=== PATIENT | female | born 1950 | race Caucasian/White ===

== ENCOUNTER → 2023-08-22 11:41 | Outpatient (REF) | payer OTHER, SELFPAY | LOC: HWWDC 11:41 | PROVIDERS: ATTENDING PHYSICIAN Family Medicine | DX: N18.31 Chronic kidney disease, stage 3a (principal); R80.9 Proteinuria, unspecified; Z12.31 Encounter for screening mammogram for malignant neoplasm of breast | CPT/HCPCS: 76775; 77063; 77067 ==

== ENCOUNTER → 2023-12-26 13:26 | Outpatient (REF) | payer OTHER, SELFPAY | LOC: HWRAD 13:26 | PROVIDERS: ATTENDING PHYSICIAN Internal Medicine Rheumatology; FAMILY PHYSICIAN Family Medicine | DX: M80.00XS Age-related osteoporosis with current pathological fracture, unspecified site, sequela (principal) | CPT/HCPCS: 77080 ==

== ENCOUNTER → 2024-04-16 12:51 | Outpatient (REF) | payer OTHER, SELFPAY | LOC: HWRCS 12:51 | PROVIDERS: ATTENDING PHYSICIAN Family Medicine | DX: R06.00 Dyspnea, unspecified (principal) | CPT/HCPCS: 93306 ==

== ENCOUNTER 2024-06-10 17:57 | Inpatient (IN) | payer OTHER, SELFPAY ==
[2024-06-10 11:37] VITALS: BP 144/86
--- NOTE | 2024-06-10 13:24 | ED.GENMED ---
History of Present Illness
General
Chief Complaint: Skin Problem
Source: patient
Exam Limitations: none
Time Seen by Provider: 06/10/24 13:10
Nursing documentation reviewed up to this point in time: agreed with
History of Present Illness
History of Present Illness:
Patient is a 74-year-old female who has a history of gout, diabetes hypertension. She was initially diagnosed with gout by her rail car repair carman Dr. Carmen Landon in April and started on allopurinol and colchicine. It was drained at that time and
showed some crystals. Patient reports on Monday she noticed a pea-sized area of pus and went to urgent care and they drained it and did put her on Keflex. She has taken 4 doses of Keflex however patient reports she has increasing redness
swelling and discomfort. She denies any fevers.
Past History
Past History
ED Past Medical History: HTN, Hypercholesterolemia and NIDDM
ED Past Surgical History: Gynecological (D&C, hysterectomy, tubal ligation), Orthopedic (Right total hip, right total knee, left ankle/tibia), Urological (Sphincter sling) and Other (Dental surgery)
Social History
Alcohol: None
Drug: None
Review of Systems
Review of Systems
Allergies reviewed?: Yes
All Other Systems: ROS reviewed and negative except as documented in HPI and ROS
Constitutional: Reports no symptoms; Denies fever, fatigue or chills
Musculoskeletal: Reports other (Left fifth finger pain swelling and redness)
Skin: Reports no symptoms
Neurological: Reports no symptoms
Psychiatric: Reports no symptoms
Phy Exam
General Physical Exam
General Presentation: no apparent distress
General age: appears stated age
General Skin: warm and dry
General Habitus: normal
General Hydration: appears well hydrated
Neurological Exam
Neurological Exam: alert and oriented x3
Musculoskeletal Exam
Musculoskeletal Exam: other (left 5 th finger with redness, swelling tenderness with redness extending to proximal dorsal hand/wrist area; finger is very painful to touch)
Skin Exam
Skin Exam: normal color and warm/dry
Psychiatric Exam
Psychiatric Exam: normal mood/affect
Course
Orders/Labs/Results
Orders:
Orders
06/10/24 13:28
Finger(s)/Thumb 2 View Lt [CR Finger(s)/thumb Min 2 Vw Lt] Urgent
Comment:
Reason For Exam: pain/swelling/redness to left 5th finger hx gout
06/10/24 13:29
IV Insert/Care/Rem.- Treatment PRN
06/10/24 14:08
Complete Blood Count/With Diff Urgent
Comprehensive Metabolic Panel Urgent
Wound Culture [Wound/Abscess/Other Culture] Urgent
MIKAYLA Source: Finger
Specimen Description: Left
Date Specimen was Collected: 06/10/24
Time Specimen was Collected: 14:00
Comment: 5th finger
Abnormal Lab Results
06/10/24
14:08
RBC 3.49 L 10^6/uL
(4.20-5.40)
Hgb 10.7 L g/dL
(12.0-16.0)
Hct 31.9 L %
(37.0-47.0)
MPV 11.3 H fL
(7.4-10.4)
Potassium 5.4 H mmol/L
(3.5-5.1)
BUN 23 H mg/dl
(7-17)
Creatinine 1.3 H mg/dL
(0.6-1.0)
06/10/24 14:08
06/10/24 14:08
Vital Signs
Initial and Last Documented VS:
Initial Vital Signs
Temp Pulse Resp BP Pulse Ox
97.5 F 94 16 144/86 95
06/10/24 11:37 06/10/24 11:37 06/10/24 11:37 06/10/24 11:37 06/10/24 11:37
Last Documented Vital Signs
Temp Pulse Resp BP Pulse Ox
98.1 F 78 16 141/80 92
06/10/24 15:40 06/10/24 15:40 06/10/24 11:37 06/10/24 15:40 06/10/24 15:40
MDM/Problems Addressed
Differential Diagnosis Includes:
No limited gout, cellulitis
MDM/Problems Addressed:
Symptoms are consistent with cellulitis. Patient with known gout had a drain several days ago in urgent care however over the past several days had increasing redness swelling and pain. Patient denies any fevers and is afebrile here however on
exam there is obvious swelling and erythema to left finger which extends to hand/wrist. Her kidney function is mildly elevated with a creatinine 1.3. Her last creatinine was 1.1 in 2022. xray consistent w/ gout. pt is on colchicine allopurinol.
Will give IV Ancef here and plan for admission.
Chronic conditions affecting care:
gout
*Critical Care Note
Total Time (30-74mins, 75-104mins- exclusive of procedures): Not Applicable
ED Attending Note
-
Portions of this chart may have been created with voice recognition software.� Occasional wrong word or��sound alike� substitutions may have occurred due to the inherent limitations of voice recognition software.
Discharge Plan
Departure
Patient Disposition: Admit
Date of Disposition: 06/10/24
Time of Disposition: 15:58
Admit to: Med/Surg
Admit to doctor: hospitalist
Presentation/result/management discussed w/ accepting MD/DO: Hospitalist
Patient with high blood pressure during this ER visit?: Yes
Condition: Fair
Covid-19: Not Applicable
Discharge Problem:
cellulitis of left 5th finger
Prescriptions:
No Action
ketoconazole 1 APPLIC cream
1 applic topical BIDPRN PRN (Reason: yeast infection)
paroxetine HCl 10 MG tablet
10 mg PO BID Qty: 0 0RF
Rx Instructions:
One tab by mouth twice daily.
lovastatin 40 MG tablet
40 mg PO HS Qty: 0 0RF
Rx Instructions:
One tab by mouth at bedtime daily.
levothyroxine 125 MCG tablet
125 mcg PO DAILY Qty: 0 0RF
Rx Instructions:
One tab by mouth once daily on an empty stomach.
hydroxychloroquine 200 MG tablet
400 mg PO DAILY Qty: 0 0RF
Rx Instructions:
Two tabs (400 mg) by mouth once daily.
metformin 500 MG tablet extended release 24 hr
2,000 mg PO HS Qty: 0 0RF
Rx Instructions:
2000 mg by mouth at bedtime daily.
cholecalciferol (vitamin D3) 1,000 UNITS tablet
1,000 units PO DAILY Qty: 0 0RF
Rx Instructions:
One tab by mouth once daily.
multivitamin with folic acid [Tab-A-Sarah] 1 TABLET tablet
1 tab PO DAILY Qty: 0 0RF
Rx Instructions:
One tab by mouth once daily.
ropinirole 4 MG tablet
4 mg PO DAILY@1400
omeprazole 20 MG tablet,disintegrat, delay rel
20 mg PO DAILY
Fosamax:
70 mg PO TARIQ
Patient Comments:
does not know dosage
mupirocin 1 APPLIC ointment
1 applic intranasal BID Qty: 1 0RF
Patient Comments:
last dose, 03/03/21
aspirin 325 MG tablet
325 mg PO DAILY 0RF
sennosides [senna] 1 TABLET tablet
2 tab PO BID 0RF
acetaminophen 325 MG tablet
650 mg PO Q6H 0RF
magnesium hydroxide 30 ML suspension
30 ml PO DAILYPRN PRN (Reason: constipation) 0RF
docusate sodium 100 MG capsule
100 mg PO BID 0RF
lisinopril 10 MG tablet
10 mg PO DAILY Qty: 0 0RF
Rx Instructions:
hold systolic blood pressure <130 while on Oxy
gabapentin 300 MG capsule
300 mg PO HS Qty: 0 0RF
Rx Instructions:
limit dose to one tab nightly due to effect on kidneys
diclofenac sodium 75 MG tablet,delayed release (DR/EC)
75 mg PO DAILY Qty: 0 0RF
Rx Instructions:
take with food
drink plenty of water daily if taking this med
hydrochlorothiazide 25 MG tablet
25 mg PO DAILY Qty: 0 0RF
Rx Instructions:
hold systolic blood pressure <130 while on Oxy
oxycodone 5 MG tablet
5 mg PO Q6HPRN PRN (Reason: moderate-severe pain) Qty: 30 0RF
Rx Instructions:
1 tab moderate pain or 2 if pain severe
Dx total joint replacement
ongoing therapy
cephalexin 500 mg capsule
500 mg PO BID 10 Days Qty: 20 0RF
Referrals:
Evelina Mccray MD [Family Provider] -
Interventions
Interventions:
ED-Skin Assessment Last Done: 06/10/24 13:45
Discharge Date and Time
Print Language: IRISH
[2024-06-10 14:23] LABS: % Basophils 0.4 % (0-2); % Eosinophils 2.5 % (0-6); % Immature Granulocytes 0.4 % (0-0.5); % Lymphocytes 22.2 % (20.5-51.1); % Monocytes 9.2 % (1.7-9.3); % Neutrophils 65.3 % (42.2-75.2); Absolute Eosinophils 0.2 10^3/uL (0-0.7); Absolute Lymphocytes 1.5 10^3/uL (1.2-3.4); Absolute Monocytes 0.6 10^3/uL (0.1-0.6); Absolute Neutrophils 4.4 10^3/uL (1.4-6.5); Hematocrit 31.9 % (37.0-47.0); Hemoglobin 10.7 g/dL (12.0-16.0); Mean Corp Hgb Conc. 33.5 g/dL (33.0-37.0); Mean Corpuscular Hgb 30.7 pg (27.0-31.0); Mean Corpuscular Volume 91.4 fL (81.0-99.0); Mean Platelet Volume 11.3 fL (7.4-10.4); Nucleated Red Blood Cells % 0 %; Platelet Count 163 10^3/uL (130-400); Red Blood Cell Count 3.49 10^6/uL (4.20-5.40); Red Cell Dist. Width 13.8 % (11.5-14.5); White Blood Cell Count 6.8 10^3/uL (4.8-10.8)
[2024-06-10 14:35] LABS: ALT (SGPT) 27 U/L (0-35); AST (SGOT) 29 U/L (14-36); Albumin 4.8 g/dl (3.5-5.0); Alkaline Phosphatase 66 U/L (38-126); Blood Urea Nitrogen 23 mg/dl (7-17); Calcium 9.8 mg/dl (8.4-10.2); Carbon Dioxide 27 mmol/L (22-30); Chloride 99 mmol/L (98-107); Glucose 99 mg/dl (70-99); Potassium 5.4 mmol/L (3.5-5.1); Sodium 141 mmol/L (135-145); Total Bilirubin 0.5 mg/dl (0.2-1.3); Total Protein 7.9 g/dl (6.3-8.2); eGFR 43.15
[2024-06-10 15:40] VITALS: BP 141/80
[2024-06-10 16:05] VITALS: BMI 37.8
--- NOTE | 2024-06-10 17:17 | HPS.HSE ---
Family Physician
-
Family Physician: Evelina Mccray
Chief Complaint
-
left finger infection
History of Present Illness
74-year-old female past medical history of gout, diabetes, hypertension, hypercholesteremia, presenting with left finger infection.
She was diagnosed with gout by arthrocentesis of the left fifth DIP by customer engineering specialist in April and started on allopurinol and colchicine. She had some improvement. A week ago she banged the finger without any laceration. Since then she has been
having worsening swelling and redness and pain with discharge from the site. Went to urgent care 2 days ago and incision and drainage was performed. She was started on Keflex. The area has gotten significantly more discolored since then. She
denies any fevers or chills.
Medical History
Past Medical History
Past Medical History: Reports Other (gout, diabetes, hypertension, hypercholesteremia,)
Past Surgical History: Reports Other (Gynecological (D&C, hysterectomy, tubal ligation), Orthopedic (Right total hip, right total knee, left ankle/tibia), Urological (Sphincter sling) and Other (Dental surgery))
Social History
Tobacco: Non-smoker
Alcohol: None
Drug: None
Family History
Family History: Not pertinent
Allergies / Home Medications
Allergies reflects when Allergies were last updated in [facility].
Home Medications with original date entered in [facility]
Allergy/Medication List:
Allergies
Allergy/AdvReac Type Severity Reaction Status Date / Time
penicillin G Allergy Hives Verified 06/10/24 11:40
Home Medications
cholecalciferol (vitamin D3) 25 mcg (1,000 unit) tablet 1,000 units PO DAILY Supplement ##0 03/20/20
hydroxychloroquine 200 mg tablet 400 mg (2 x 200 mg) PO DAILY arthritis ##0 03/20/20
levothyroxine 125 mcg tablet 125 mcg PO DAILY Thyroid ##0 03/20/20
lovastatin 40 mg tablet 40 mg PO HS High cholesterol ##0 03/20/20
metformin 500 mg tablet,extended release 24 hr 2,000 mg (4 x 500 mg) PO HS Diabetes ##0 03/20/20
paroxetine HCl 10 mg tablet 10 mg PO BID Mental Health/Anxiety ##0 03/20/20
omeprazole 20 mg delayed release,disintegrating tablet 20 mg PO DAILY Gastrointestinal issue 02/08/21
ropinirole 4 mg tablet 4 mg PO DAILY@1400 Movement disorder 02/08/21
diclofenac sodium 75 mg tablet,delayed release 75 mg PO DAILY ##0 03/05/21
lisinopril 10 mg tablet 10 mg PO DAILY ##0 03/05/21
cephalexin 500 mg capsule 500 mg PO BID 10 days #20 caps 05/12/23
allopurinol 100 mg tablet 100 mg PO DAILY 06/10/24
amlodipine 5 mg tablet 5 mg PO DAILY 06/10/24
ascorbic acid (vitamin C) 500 mg tablet (Vitamin C) 500 mg PO DAILY 06/10/24
calcium carbonate (Calcium 600) 600 mg PO DAILY 06/10/24
carboxymethylcellulose sodium 0.5 % eye drops (Refresh Tears) 1 drp BOTH EYES QIDPRN PRN irritated eyes 06/10/24
colchicine 0.6 mg tablet 0.6 mg PO DAILY 06/10/24
gabapentin 600 mg tablet 600 mg PO TID 06/10/24
ketoconazole 2 % topical cream 1 applic topical DAILYPRN PRN yeast infection 06/10/24
therapeutic multivitamin 1 tab PO DAILY 06/10/24
Review of Systems
-
History Source: Patient
A 12 point ROS was completed and negative except as noted: Yes
Constitutional: Reports No Symptoms
EENT: Reports No Symptoms
Respiratory: Reports No Symptoms
Cardiac: Reports No Symptoms
Abdomen/GI: Reports No Symptoms
: Reports No Symptoms
Musculoskeletal: Reports Joint Pain
Skin: Reports No Symptoms
Neurological: Reports No Symptoms
Endocrine: Reports No Symptoms
Hematologic/Lymphatic: Reports No Symptoms
Psych: Reports No Symptoms
Physical Exam
Vital Signs
Vital Signs
Temp Pulse Resp BP Pulse Ox
98.1 F 78 18 141/80 92
06/10/24 15:40 06/10/24 15:40 06/10/24 16:00 06/10/24 15:40 06/10/24 15:40
Physical Exam
General: Well Developed, Well Nourished and No Apparent Distress
HEENT: NormoCephalic, Moist mucous membranes and Atraumatic
Respiratory: Clear
Cardiac: S1/S2 and Regular Rhythm; No Murmur or Rub
GI: Soft, Non Tender, Non Distended and Normal Bowel Sounds; No Organomegaly
Rectal: Deferred by Provider
Musculoskeletal: No Clubbing, No Cyanosis and No Edema
Skin: Other (left DIP erythema, swelling and redness ); No Rash
Neuro: Nonfocal/grossly intact
Laboratory Results
-
06/10/24 14:08
06/10/24 14:08
Laboratory Results
Total Bilirubin 0.5 mg/dl (0.2-1.3) 06/10/24 14:08
AST 29 U/L (14-36) 06/10/24 14:08
ALT 27 U/L (0-35) 06/10/24 14:08
Alkaline Phosphatase 66 U/L (38-126) 06/10/24 14:08
Data Reviewed
-
Lab Data: Labs Reviewed by me
Old Records: Reviewed
Impression/Plan
-
IMPRESSION:
PLAN:
# Left distal interphalangeal joint infection possibly septic arthritis versus superficial cellulitis superimposed on gout
# Recent gout of left DIP
-Infection spreading up the hand
-X-ray consistent with gout
-Wound culture sent
-Cefepime started
-Ortho consulted
Gout
-Continue allopurinol
-Continue colchicine
-Continue diclofenac
Type 2 diabetes
-Continue metformin
Essential hypertension
-Continue amlodipine
-Continue lisinopril
Hypercholesterolemia
-Continue statin
Anxiety/depression
-Continue paroxetine
GERD
-Continue omeprazole
Restless leg syndrome
-Continue ropinirole
-Continue gabapentin
Hypothyroidism
-Continue levothyroxine
Polymyalgia rheumatica
-Continue hydroxychloroquine
Full code
DVT prophylaxis�heparin
Regular diet
[2024-06-10] MEDS: NSS 1000 IV (17:38)
[2024-06-10] MEDS: ANCEF 5 IV (17:38)
[2024-06-10 20:05] VITALS: BMI 36.2
[2024-06-10 20:16] VITALS: BP 144/93
[2024-06-10] MEDS: HEPARIN 5000 UNITS SC (20:46)
[2024-06-10] MEDS: PAXIL 10 MG PO (20:46)
[2024-06-10] MEDS: TYLENOL 1000 MG PO (20:46)
[2024-06-10 21:55] LABS: Glucose - Point of Care 143 mg/dl (70-99)
[2024-06-10] MEDS: GLUCOPHAGE XR EXTENDED RELEASE 1000 MG PO (22:01)
[2024-06-10] MEDS: LIPITOR 10 MG PO (22:01)
[2024-06-10] MEDS: NEURONTIN 300 MG PO (22:01)
[2024-06-10 23:16] VITALS: BP 143/79
[2024-06-10] MEDS: MAXIPIME 1000 MG IV (23:40)
[2024-06-10] MEDS: STERILE WATER FOR INJECTION 10 ML IV (23:41)
[2024-06-11] MEDS: TYLENOL 650 MG PO ×3 (05:27→21:51)
[2024-06-11] MEDS: SYNTHROID 125 MCG PO (05:28)
--- NOTE | 2024-06-11 06:15 | CON.ORTHO ---
Consultation
-
Date/Time Consultation Requested: 06/10/2024 @ 20:05
Date/Time Consultation Performed: 06/11/2024 @ 6:00
Requesting Provider: Kiki Granda MD
Performing Provider: Nelson Amato PA-C for Dr. Zach Taylor
Reason for Consultation: Left Small Finger Infection
Consultation - Orthopedics
History
HPI: The patient is a 74-year-old [id number] female with a past medical history of gout, diabetes (most recent HbA1c 6.0) on Metformin, hypertension, hypercholesterolemia, presenting to [facility] yesterday
evening with left small finger infection. Towards the end of this past April, she reports that she was diagnosed with gout by arthrocentesis of the left fifth DIP joint by her Commercial Account Executive (Dr. Carmen Landon). She was started on Allopurinol
and Colchicine and was provided with a corticosteroid injection. Initially, she reports noticing some improvement, however over time she reports that she began to develop pus from the aspiration/injection site. She states that she did not contact
her Commercial Account Executive regarding this. Monday, 1 week ago, she reports that she banged the finger. She denies any decreased range of motion or inability to flex/extend the DIP joint after she banged her finger. This past Monday, she noticed a
'pea-sized' area of pus. She went to [facility] on Monday, where cultures were obtained and she was started on Keflex. This past Monday, she notes increased redness, pain, and swelling. This prompted evaluation in the ED
yesterday. Wound culture was obtained in the ED. X-rays were obtained, and per radiologist were consistent with gout without evidence for occult fracture. She was started on Cefepime. Since initiation of IV antibiotics yesterday evening, she
denies any improvement thus far. Orthopedic surgery has been consulted for further management.
PAST MEDICAL HISTORY: Gout, diabetes, hypertension, hypercholesterolemia.
PAST SURGICAL HISTORY: D&C, hysterectomy, tubal ligation, right total hip replacement, right total knee replacement, left ankle/tibia surgery, sphincter sling, dental surgery.
SOCIAL HISTORY: Denies tobacco use. Denies EtOH use. Denies illicit drug use.
FAMILY HISTORY: Non-contributory.
REVIEW OF SYSTEMS: 12-point review of systems obtained and negative except those mentioned in the HPI.
Allergies / Home Medications
Allergy/AdvReac Type Severity Reaction Status Date / Time
penicillin G Allergy Hives Verified 06/10/24 11:40
�Medication �Instructions �Recorded
cholecalciferol (vitamin D3) 25 1,000 units PO DAILY Supplement ##0 03/20/20
mcg (1,000 unit) tablet
hydroxychloroquine 200 mg tablet 400 mg (2 x 200 mg) PO DAILY 03/20/20
arthritis ##0
levothyroxine 125 mcg tablet 125 mcg PO DAILY Thyroid ##0 03/20/20
lovastatin 40 mg tablet 40 mg PO HS High cholesterol ##0 03/20/20
metformin 500 mg tablet,extended 2,000 mg (4 x 500 mg) PO HS 03/20/20
release 24 hr Diabetes ##0
paroxetine HCl 10 mg tablet 10 mg PO BID Mental Health/Anxiety 03/20/20
##0
omeprazole 20 mg delayed 20 mg PO DAILY Gastrointestinal 02/08/21
release,disintegrating tablet issue
ropinirole 4 mg tablet 4 mg PO DAILY@1400 Movement 02/08/21
disorder
diclofenac sodium 75 mg 75 mg PO DAILY ##0 03/05/21
tablet,delayed release
lisinopril 10 mg tablet 10 mg PO DAILY ##0 03/05/21
cephalexin 500 mg capsule 500 mg PO BID 10 days #20 caps 05/12/23
allopurinol 100 mg tablet 100 mg PO DAILY 06/10/24
amlodipine 5 mg tablet 5 mg PO DAILY 06/10/24
ascorbic acid (vitamin C) 500 mg 500 mg PO DAILY 06/10/24
tablet (Vitamin C)
calcium carbonate (Calcium 600) 600 mg PO DAILY 06/10/24
carboxymethylcellulose sodium 0.5 1 drp BOTH EYES QIDPRN PRN 06/10/24
% eye drops (Refresh Tears) irritated eyes
colchicine 0.6 mg tablet 0.6 mg PO DAILY 06/10/24
gabapentin 600 mg tablet 600 mg PO TID 06/10/24
ketoconazole 2 % topical cream 1 applic topical DAILYPRN PRN 06/10/24
yeast infection
therapeutic multivitamin 1 tab PO DAILY 06/10/24
Vital Signs / Lab Results
Temp Pulse Resp BP Pulse Ox
98.6 F 76 18 143/79 95
06/10/24 23:16 06/10/24 23:16 06/10/24 23:16 06/10/24 23:16 06/10/24 23:16
RADIOGRAPHIC FINDINGS:
CR Finger (s) / thumb Min 2 Vw LT was obtained at [facility] on 06/10/2024 and was made available for my review today. Findings: Soft tissue prominence and calcifications is seen, most pronounced on the dorsal aspect overlying the distal
phalanx of the left fifth digit. No fracture is appreciated of the left fifth digit. Marginal erosion is seen of the distal aspect of the middle phalanx, with overhanging edges. Impression: Findings consistent with gout, as detailed above.
Wound culture obtained in ED preliminary Gram stain revealing no WBC, rare gram-positive cocci. Culture pending.
PHYSICAL EXAM:
General: Well-developed, well-nourished and in no apparent distress.
HEENT: NCAT, sclerae anicteric, normal hearing.
Heart: No JVD.
Lungs: Normal work of breathing on room air.
MSK: Physical examination of the left upper extremity, with attention to the left small finger reveals generalized edema in comparison to the other digits. There is erythema overlying the dorsal and volar aspects of the left small finger, extending
to the region of the proximal phalanx. There appears to be gouty tophi noted overlying the dorsal aspect of the DIP. There is tenderness to palpation about the dorsal and volar aspects of the left small finger. Left small finger DIP joint is
slightly flexed. It is difficult to assess her ability to perform active extension of the DIP due to edema and pain. Left small finger is not held in passive flexion and there is no significant pain with passive extension. Limited range of motion
of the DIP joint and PIP joint, however able to perform gentle ROM of MCP joint. Wrist ROM intact without pain. Unable to demonstrate a full composite fist. Sensation intact to light touch and capillary refill less than 2 seconds.
Assessment / Plan
ASSESSMENT: 74-year-old [id number] female with a past medical history significant for gout, diabetes (reports last HbA1c 6.0) on Metformin, hypertension, and hypercholesterolemia, presenting to the ED with a left small finger infection
overlying the distal phalanx/DIP joint with Cellulitis spreading to proximal phalanx superimposed on Gout. Afebrile. WBC within normal limits.
PLAN:
1) Continue with IV antibiotics per primary team. Preliminary Gram stain from wound cultures obtained in ED revealing rare gram-positive cocci; cultures pending. Currently on Cefepime. Consider ID consult.
2) Incorporation of warm dilute Hibiclens soaks TID.
3) Continue to monitor clinical picture closely. Orthopedic surgery will continue to follow.
--- NOTE | 2024-06-11 06:30 | PTCARENOTE ---
Patient`s left eye is pink and swollen. No drainage noted. Patient states that her eye itches, but doesn`t hurt. Cold compress applied. See mar for eye drop admin. Pippa LOWERY made aware. No new orders at this time.
[2024-06-11] MEDS: REFRESH CELLUVISC GEL 1 DROPS BOTH EYES (06:32)
[2024-06-11 07:04] VITALS: BP 153/85
[2024-06-11] MEDS: PLAQUENIL 400 MG PO (07:45)
[2024-06-11] MEDS: NEURONTIN 300 MG PO ×3 (07:45→21:50)
[2024-06-11] MEDS: VITAMIN C 500 MG PO (07:45)
[2024-06-11] MEDS: VITAMIN D3 (cholecalciferol) 25 MCG PO (07:45)
[2024-06-11] MEDS: PROTONIX 40 MG PO (07:45)
[2024-06-11] MEDS: PAXIL 10 MG PO ×2 (07:45→20:51)
[2024-06-11] MEDS: ZYLOPRIM 100 MG PO (07:45)
[2024-06-11] MEDS: VOLTAREN 75 MG PO (07:45)
[2024-06-11] MEDS: OSCAL CAL 500 500 MG PO (07:46)
[2024-06-11] MEDS: COLCHICINE 0.6 MG PO (07:46)
[2024-06-11] MEDS: THERAGRAN 1 TABLET PO (07:46)
[2024-06-11] MEDS: NORVASC 5 MG PO (07:50)
[2024-06-11] MEDS: ZESTRIL 10 MG PO (07:50)
[2024-06-11] MEDS: HEPARIN 5000 UNITS SC (07:54)
[2024-06-11 08:49] LABS: % Basophils 0.6 % (0-2); % Eosinophils 3.2 % (0-6); % Immature Granulocytes 0.8 % (0-0.5); % Lymphocytes 25.5 % (20.5-51.1); % Monocytes 7.9 % (1.7-9.3); Absolute Eosinophils 0.2 10^3/uL (0-0.7); Absolute Lymphocytes 1.3 10^3/uL (1.2-3.4); Absolute Monocytes 0.4 10^3/uL (0.1-0.6); Absolute Neutrophils 3.1 10^3/uL (1.4-6.5); Hematocrit 30.6 % (37.0-47.0); Hemoglobin 10.2 g/dL (12.0-16.0); Mean Corp Hgb Conc. 33.3 g/dL (33.0-37.0); Mean Corpuscular Hgb 30.4 pg (27.0-31.0); Mean Corpuscular Volume 91.1 fL (81.0-99.0); Mean Platelet Volume 11.6 fL (7.4-10.4); Nucleated Red Blood Cells % 0 %; Platelet Count 160 10^3/uL (130-400); Red Blood Cell Count 3.36 10^6/uL (4.20-5.40); Red Cell Dist. Width 13.5 % (11.5-14.5); White Blood Cell Count 5.1 10^3/uL (4.8-10.8)
[2024-06-11 08:53] LABS: ALT (SGPT) 26 U/L (0-35); AST (SGOT) 30 U/L (14-36); Albumin 4.3 g/dl (3.5-5.0); Alkaline Phosphatase 72 U/L (38-126); Blood Urea Nitrogen 18 mg/dl (7-17); Calcium 9.3 mg/dl (8.4-10.2); Carbon Dioxide 23 mmol/L (22-30); Chloride 102 mmol/L (98-107); Estimated Creatinine Clearance 50 ml/min; Glucose 128 mg/dl (70-99); Potassium 5.4 mmol/L (3.5-5.1); Sodium 140 mmol/L (135-145); Total Bilirubin 0.4 mg/dl (0.2-1.3); Total Protein 7.3 g/dl (6.3-8.2)
--- NOTE | 2024-06-11 08:55 | W.PN.HOSP.TC ---
Today's Communication/Plan
-
see bold
Assessment / Plan
Assessment / Plan
HPI: 74-year-old female with history of diabetes mellitus, polymyalgia rheumatica, rheumatoid arthritis on Plaquenil who recently was diagnosed with gout when she presented to her window and siding craftsman with about 6 months history of left 5th distal finger
streak of redness with mild discomfort. No swelling at the time. At the end of April 2024 her window and siding craftsman aspirated the finger, and saw multiple crystals under the microscope. She was diagnosed with gout. The same day rheumatology instilled
steroid onto the joint. She was then started on allopurinol and colchicine. Her finger did improve. The redness never did go away. About a week ago she accidentally banged her hand against the wall. Afterwards the finger became red and swollen.
She then noted yellowish-white substance draining from the previous aspiration/injection site. She went to urgent care on June 08 who aspirated the finger with a larger bore needle. Gout was also noted. She was discharged on cephalexin. The
urgent care culture grew MSSA, pansensitive.
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
# Superimposed MSSA infection/possible septic joint of DIP
06/08 Urgent care aspiration of finger +MSSA, pansensitive
Appreciate orthopedic surgery input, rec warm dilute Hibiclens soaks TID.
Appreciate ID input, antibiotics changed to Ancef
Continue allopurinol, colchicine, diclofenac
#Hyperkalemia
Potassium 5.4
Give Lokelma 10 mg x 1, low potassium diet, hold lisinopril trend BMP
Type 2 diabetes
-Continue metformin, diabetic diet, sliding scale insulin
Essential hypertension
-Continue amlodipine
-Hold lisinopril secondary to hyperkalemia
Stage IIIa chronic kidney disease
-Monitor creatinine
Hypercholesterolemia
-Continue statin
Anxiety/depression
-Continue paroxetine
GERD
-Continue omeprazole
Restless leg syndrome
-Continue ropinirole
-Continue gabapentin
Hypothyroidism
-Continue levothyroxine
Polymyalgia rheumatica
-Continue hydroxychloroquine
Obesity due to excess calories
-Affects all aspects of care
DVT prophylaxis�subcu Lovenox
Full code
Total time spent to see the patient on the floor, examine the patient, review data and lab results, discuss treatment plan with patient, nursing staff around 50 minutes.
Physical Exam
General: Obese, No acute distress
HEENT: Normocephalic, Atraumatic, EOMI, MMM
Respiratory: Clear to Auscultation bilaterally
Cardiac: Normal S1/S2, Regular Rate and Rhythm
GI: Soft, Nontender, Nondistended, Normal Bowel Sounds
Extremities: No Clubbing, Cyanosis, or Edema
Msk: Left fifth finger distal interphalangeal joint + chamberlain black wound with tophaceous gout, + significant erythema and edema of the entire finger. + tenderness.
Neuro: Nonfocal/Grossly Intact
Psych: Calm, Cooperative
Anticipated Discharge: 24 - 48 hours
Subjective/Interval History
-
Date of Service: June 11, 2024
Patient continues to have numbness in her left fifth finger, unchanged from prior. She had a bowel movement this morning. No fever, no vomiting.
Objective Data
-
Labs:
Laboratory Results
06/11/24
07:42
WBC 5.1
Hgb 10.2 L
Hct 30.6 L
Plt Count 160
Sodium 140
Potassium 5.4 H
Chloride 102
Carbon Dioxide 23
BUN 18 H
Creatinine 1.2 H
Glucose 128 H
Calcium 9.3
Total Bilirubin 0.4
AST 30
ALT 26
Alkaline Phosphatase 72
Vital Signs:
Vital Signs
Temp Pulse Resp BP Pulse Ox
98.1 F 75 18 153/85 95
06/11/24 07:04 06/11/24 07:04 06/11/24 07:04 06/11/24 07:50 06/11/24 07:04
I&O
06/10/24 06/11/24 06/12/24
06:59 06:59 06:59
Intake Total 240 / 240
Balance 240 / 240
[2024-06-11 10:43] LABS: Erythrocyte Sed Rate 77 mm/hour (0-20)
[2024-06-11] MEDS: STERILE WATER FOR INJECTION 10 ML IV (11:38)
[2024-06-11] MEDS: MAXIPIME 1000 MG IV (11:38)
[2024-06-11] MEDS: REQUIP 4 MG PO (13:12)
--- NOTE | 2024-06-11 13:49 | CON.ID ---
Consultation
-
Date/Time Consultation Requested: June 11, 2024 1156
Date/Time Consultation Performed: July 08, 2024 1350
Requesting Provider: Dr. Nidia Benitez
Performing Provider: Dr. Angie Serrano
Reason for Consultation: Cellulitis and gout
Chief Complaint / Past History
Chief Complaint
Left fifth finger redness, swelling, draining wound
History of Present Illness
74-year-old female with history of diabetes mellitus, polymyalgia rheumatica, rheumatoid arthritis on Plaquenil who recently was diagnosed with gout when she presented to her email deployment specialist with about 6 months history of left 5th distal finger
streak of redness with mild discomfort. No swelling at the time. At the end of April 2024 her email deployment specialist aspirated the finger, and saw multiple crystals under the microscope. She was diagnosed with gout. The same day rheumatology instilled
steroid onto the joint. She was then started on allopurinol and colchicine. Her finger did improve. The redness never did go away. About a week ago she accidentally banged her hand against the wall. Afterwards the finger became red and swollen.
She then noted yellowish-white substance draining from the previous aspiration/injection site. She went to urgent care on June 08 who aspirated the finger with a larger bore needle. Gout was also noted. She was discharged on cephalexin. The
urgent care culture grew MSSA, pansensitive. However her finger did not improve. It became darker in color. She therefore presented to [facility] on June 10. No fevers. No chills. X-ray of the finger consistent with gout. ED swab
the wound and the culture is growing Staphylococcus aureus. She is currently on cefepime. Pt reports pt finger is painful.
Past History
Additional Past Medical History:
Hypertension
Diabetes mellitus
Polymyalgia rheumatica
Rheumatoid arthritis on Plaquenil
Fibromyalgia
Gout dx 04/2024 on allopurinol and colchicine
hypothyroidism
Osteoporosis
Osteoarthritis
Restless leg syndrome
R TKR
Right total hip replacement
Left ankle ORIF with subsequent removal of hardware
Urinary sphincter sling
Allergy History:
penicillin G Allergy (Verified 06/10/24 11:40)
Hives
Medications Reviewed: Yes
Current Antibiotics:
Cefepime
Social History
Tobacco: Former Smoker
Alcohol: Occasional
Drug: None
Family History
Family History: Not Pertinent
Review of Systems
Review of Systems
General: Negative Fever, Chills or Change in Appetite
HEENT: Negative Headache or Pharyngitis
Cardiovascular: Negative Chest Pain or Dyspnea
Respiratory: Negative Dyspnea or Cough
Gasteroenterology: Negative Nausea, Vomiting or Diarrhea
Genital / Urological: Negative Dysuria or Flank Pain
Endocrine: Negative Weakness
Neurological: Negative Dizziness
All systems: All other systems were reviewed and were negative
Vital Signs
Temp Pulse Resp BP Pulse Ox
98.1 F 75 18 153/85 95
06/11/24 07:04 06/11/24 07:04 06/11/24 07:04 06/11/24 07:50 06/11/24 07:04
Physical Exam
Physical Exam
Constitutional: No Acute Distress, Comfortable and Obese
Eyes: No Conjunctival Hemorrhage and Sclera Anicteric
Cardiovascular: Regular Rate and S1/S2
Pulmonary: Clear
Gastrointestinal: Non Tender, Non Distended and Normal Bowel Sounds
Genito-Urinary: Negative CVA Tenderness
Extremities: Negative Edema (BLE)
Skin: Negative Rash
Wound: Other (Left fifth finger distal interphalangeal joint + chamberlain black wound with tophaceous gout, + significant erythema and edema of the entire finger. + tenderness.)
Lab / Diagnostic Study Results
06/11/24 07:42
06/11/24 07:42
Abs Immat Gran (auto) 0.0 10^3/uL (0-0.05) 06/11/24 07:42
Absolute Neuts (auto) 3.1 10^3/uL (1.4-6.5) 06/11/24 07:42
Absolute Lymphs (auto) 1.3 10^3/uL (1.2-3.4) 06/11/24 07:42
Absolute Monos (auto) 0.4 10^3/uL (0.1-0.6) 06/11/24 07:42
Absolute Basos (auto) 0.0 10^3/uL (0-0.2) 06/11/24 07:42
Immature Gran % 0.8 % (0-0.5) H 06/11/24 07:42
Neutrophils % 62.0 % (42.2-75.2) 06/11/24 07:42
Lymphocytes % 25.5 % (20.5-51.1) 06/11/24 07:42
Monocytes % 7.9 % (1.7-9.3) 06/11/24 07:42
Eosinophils % 3.2 % (0-6) 06/11/24 07:42
Basophils % 0.6 % (0-2) 06/11/24 07:42
ESR 77 mm/hour (0-20) H 06/11/24 07:42
C-Reactive Protein 61.40 mg/L (0.0-10.00) H 06/11/24 07:42
Microbiology Results
Micro:
06/10/24 14:08 Wound Culture - Preliminary
Finger - Left Staphylococcus aureus
Gram Stain - Preliminary
06/10/24 Finger Xray: Soft tissue prominence and calcification is seen, most pronounced on the dorsal aspect overlying the distal phalanx of the left fifth digit. Marginal erosion is seen of the distal aspect of the middle phalanx, with overhanging
edges.Findings consistent with gout, as detailed above.
Assessment / Plan
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
# Superimposed MSSA infection/possible septic joint of DIP
06/08 Urgent care aspiration of finger +MSSA, pansensitive
- XRAY consistent with gout.
- Change cefepime to cefazolin 2gIV q8.
- Follow clinically
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
Hypertension
Diabetes mellitus
Polymyalgia rheumatica
Rheumatoid arthritis on Plaquenil
Fibromyalgia
Gout
hypothyroidism
Osteoporosis
Osteoarthritis
Restless leg syndrome
R TKR
Right total hip replacement
Left ankle ORIF with subsequent removal of hardware
Urinary sphincter sling
--- NOTE | 2024-06-11 14:37 | CM ---
land development project manager reviewed patient's chart and met with patient and patient states that she lives alone in a one story home with one step to enter, patient is independent with adl's and ambulation, patient has a walker, cane and shower chair in home from
a previous surgery.
PCP: Evelina Mccray
Pharmacy : [facility]
Plan; Home when stable, keycase assembler will follow for any needs that may develop.
[2024-06-11 15:11] VITALS: BP 150/91
[2024-06-11 15:17] LABS: Uric Acid 8.3 mg/dl (2.5-6.2)
[2024-06-11] MEDS: LOVENOX 40 MG SC (17:39)
[2024-06-11 21:38] LABS: Glucose - Point of Care 129 mg/dl (70-99)
[2024-06-11] MEDS: LIPITOR 10 MG PO (21:50)
[2024-06-11] MEDS: GLUCOPHAGE XR EXTENDED RELEASE 1000 MG PO (21:51)
[2024-06-11] MEDS: ANCEF 10 IV (21:51)
[2024-06-11 22:55] VITALS: BP 137/89
[2024-06-12] MEDS: SYNTHROID 125 MCG PO (05:07)
[2024-06-12] MEDS: ANCEF 10 IV ×3 (05:07→21:56)
[2024-06-12] MEDS: TYLENOL 650 MG PO (05:10)
[2024-06-12] MEDS: REFRESH CELLUVISC GEL 1 DROPS BOTH EYES ×2 (05:29→22:26)
[2024-06-12 07:24] LABS: Glucose - Point of Care 128 mg/dl (70-99)
[2024-06-12 07:30] VITALS: BP 152/88
--- NOTE | 2024-06-12 07:40 | W.PN.UPDATE ---
Update Note
Progress Note Update
Ms. Guerrero is resting comfortably in bed this morning. She endorses continued pain and redness about the distal aspect of her small finger. She denies any improvement in her symptoms since yesterday.
Directed exam of the left small finger reveals erythema about the distal half of the finger. Ecchymosis and gouty tophi overlying the DIP joint and nailbed. There does feel to be a small amount of fluctuance underlying the area of gouty tophi.
Tenderness to palpation generally throughout the distal finger. ROM limited secondary to pain and swelling. Sensation intact to light touch.
Wound culture with Staph.
PLAN:
--I have reached out to Dr. Taylor via TT to discuss management moving forward. I discussed with Thalia that lancing the area at the bedside versus surgical debridement may be warranted. I will keep her NPO for now in the event that surgical
intervention is required. She verbalized understanding.
--Continue IV abx per primary and ID. Currently cefazolin.
--Continue warm dilute Hibiclens soaks TID.
--Pain control prn.
--Continue to monitor clinical picture closely. Orthopedic surgery will continue to follow.
[2024-06-12 08:21] LABS: Blood Urea Nitrogen 19 mg/dl (7-17); Calcium 9.2 mg/dl (8.4-10.2); Carbon Dioxide 23 mmol/L (22-30); Chloride 103 mmol/L (98-107); Estimated Creatinine Clearance 50 ml/min; Glucose 129 mg/dl (70-99); Magnesium 1.3 mg/dl (1.6-2.3); Potassium 4.8 mmol/L (3.5-5.1); Sodium 141 mmol/L (135-145)
--- NOTE | 2024-06-12 08:45 | W.PN.HOSP.TC ---
Addendum entered and electronically signed by Eusebio Benitez MD 06/12/24 16:13:
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
Original Note:
Today's Communication/Plan
-
See bold
Assessment / Plan
Assessment / Plan
HPI: 74-year-old female with history of diabetes mellitus, polymyalgia rheumatica, rheumatoid arthritis on Plaquenil who recently was diagnosed with gout when she presented to her cath lab with about 6 months history of left 5th distal finger
streak of redness with mild discomfort. No swelling at the time. At the end of April 2024 her cath lab aspirated the finger, and saw multiple crystals under the microscope. She was diagnosed with gout. The same day rheumatology instilled
steroid onto the joint. She was then started on allopurinol and colchicine. Her finger did improve. The redness never did go away. About a week ago she accidentally banged her hand against the wall. Afterwards the finger became red and swollen.
She then noted yellowish-white substance draining from the previous aspiration/injection site. She went to urgent care on June 08 who aspirated the finger with a larger bore needle. Gout was also noted. She was discharged on cephalexin. The
urgent care culture grew MSSA, pansensitive.
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
# Superimposed MSSA infection/possible septic joint of DIP
06/08 Urgent care aspiration of finger +MSSA, pansensitive
Appreciate orthopedic surgery input, rec warm dilute Hibiclens soaks TID, rec MRI
Appreciate ID input, antibiotics changed to Ancef
Continue allopurinol, colchicine, diclofenac
#Hyperkalemia
Resolved status post Lokelma 10 mg x 1, hold lisinopril trend BMP
#Hypomagnesemia
Replete by IV, recheck a.m. labs
Type 2 diabetes
-Continue metformin, diabetic diet, sliding scale insulin
Essential hypertension
-Continue amlodipine
-Hold lisinopril secondary to hyperkalemia
Stage IIIa chronic kidney disease
-Monitor creatinine
Hypercholesterolemia
-Continue statin
Anxiety/depression
-Continue paroxetine
GERD
-Continue omeprazole
Restless leg syndrome
-Continue ropinirole
-Continue gabapentin
Hypothyroidism
-Continue levothyroxine
Polymyalgia rheumatica
-Continue hydroxychloroquine
Obesity due to excess calories
-Affects all aspects of care
DVT prophylaxis�subcu Lovenox
Full code
Total time spent to see the patient on the floor, examine the patient, review data and lab results, discuss treatment plan with patient, nursing staff around 51 minutes.
Physical Exam
General: Obese, No acute distress
HEENT: Normocephalic, Atraumatic, EOMI, MMM
Respiratory: Clear to Auscultation bilaterally
Cardiac: Normal S1/S2, Regular Rate and Rhythm
GI: Soft, Nontender, Nondistended, Normal Bowel Sounds
Extremities: No Clubbing, Cyanosis, or Edema
Msk: Left fifth finger distal interphalangeal joint + chamberlain black wound with tophaceous gout, + significant erythema and edema of the entire finger. + tenderness.
Neuro: Nonfocal/Grossly Intact
Psych: Calm, Cooperative
Anticipated Discharge: 24 - 48 hours
Subjective/Interval History
-
Date of Service: June 12, 2024
Patient complains of pain in her left pinky finger. No chest pain, no shortness of breath. No fever, no vomiting.
Objective Data
-
Labs:
Laboratory Results
06/12/24
06:44
Sodium 141
Potassium 4.8
Chloride 103
Carbon Dioxide 23
BUN 19 H
Creatinine 1.2 H
Glucose 129 H
Calcium 9.2
Vital Signs:
Vital Signs
Temp Pulse Resp BP Pulse Ox
97.9 F 76 16 152/88 99
06/12/24 07:30 12/04/24 07:30 06/12/24 07:30 06/12/24 07:30 06/12/24 07:30
I&O
06/11/24 06/12/24 06/13/24
06:59 06:59 06:59
Intake Total 240 / 240 1440 / 1440
Balance 240 / 240 1440 / 1440
[2024-06-12] MEDS: MAGNESIUM SULFATE 50 IV (09:17)
[2024-06-12] MEDS: PLAQUENIL 400 MG PO (09:17)
[2024-06-12] MEDS: PROTONIX 40 MG PO (09:18)
[2024-06-12] MEDS: ZYLOPRIM 100 MG PO (09:19)
[2024-06-12] MEDS: OSCAL CAL 500 500 MG PO (09:19)
[2024-06-12] MEDS: NEURONTIN 300 MG PO ×3 (09:19→21:56)
[2024-06-12] MEDS: THERAGRAN 1 TABLET PO (09:20)
[2024-06-12] MEDS: PAXIL 10 MG PO ×2 (09:20→21:56)
[2024-06-12] MEDS: VOLTAREN 75 MG PO (09:21)
[2024-06-12] MEDS: COLCHICINE 0.6 MG PO (09:21)
[2024-06-12] MEDS: VITAMIN D3 (cholecalciferol) 25 MCG PO (09:21)
[2024-06-12] MEDS: VITAMIN C 500 MG PO (09:21)
[2024-06-12] MEDS: NORVASC 5 MG PO (09:22)
--- NOTE | 2024-06-12 09:27 | PN.CDI ---
CDI
- -
CDI:
Physician Documentation Request
Admit Date: 06/10/24 17:57
Dear Doctor Do,
Please review the following and provide your response in the progress notes.
Clinical Indicators:
PN, 06/11
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
Please clarify which of the following accurately represents the acuity of the Tophaceous Gout, left 5th finger DIP:
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
Chronic Tophaceous Gout, only
Other(please specify)
Use of terms such as suspected, likely, concern for, or probable (associated with a specific diagnosis that is being evaluated, monitored, or treated as if it exists) are acceptable and can be coded in the inpatient setting, when documented at the
time of discharge.
Thank you,
Jayde Tripathi RN BSN CCDS
CDI Specialist
please contact via tiger text
Please use your independent medical judgment in providing your response.
--- NOTE | 2024-06-12 10:08 | W.PN.UPDATE ---
Update Note
Progress Note Update
Images were reviewed with Dr. Taylor. He recommends continued observation and IV antibiotics. He also recommends obtaining an MRI to further evaluate the extent of the current infection. Orthopedics will continue to follow along. Patient may have
diet today.
[2024-06-12] MEDS: DILAUDID 0.5 MG IV (11:03)
[2024-06-12 12:07] LABS: Glucose - Point of Care 125 mg/dl (70-99)
--- NOTE | 2024-06-12 12:37 | W.PN.ID1 ---
Date of Service
Date of Service: June 12, 2024
Today's Communication
Start prednisone for gout flare.
Continue cefazolin.
Assessment / Plan
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
- I checked Uric acid -> still elevated at 8.3 while on chronic allopurinol
- Also on chronic colchicine
- Start prednisone 40mg po daily.
# Superimposed MSSA infection/possible septic joint of DIP
-06/08 Urgent care aspiration of finger +MSSA, pansensitive
- 06/09 ED wound swab MSSA
- XRAY consistent with gout.
- For MRI, per ortho
- Continue cefazolin 2gIV q8h (d2). Anticipate 6 weeks of IV abx.
- Follow clinically
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
Hypertension
Diabetes mellitus
Polymyalgia rheumatica
Rheumatoid arthritis on Plaquenil
Fibromyalgia
Gout
hypothyroidism
Osteoporosis
Osteoarthritis
Restless leg syndrome
R TKR
Right total hip replacement
Left ankle ORIF with subsequent removal of hardware
Urinary sphincter sling
Chief Complaint
-: Cellulitis and Other (tophaceous gout)
Subjective / Review of Systems
Finger still hurts.
Vital Signs / Physical Exam
Vital Signs
Vital Signs
Temp Pulse Resp BP Pulse Ox
97.9 F 76 16 152/88 99
06/12/24 07:30 06/12/24 07:30 06/12/24 07:30 06/12/24 07:30 06/12/24 07:30
Physical Exam
Constitutional: No Acute Distress and Comfortable
Pulmonary: Clear
Gastrointestinal: Soft, Non Tender, Non Distended and Normal Bowel Sounds
Extremities: Negative Edema
Wound: Other (left 5th finger DIP wound black with tophi output, finger still red and edematous)
Neurological: Awake and AO x 3
Objective Data
Lab Data
Lab Results
06/11/24 07:42
06/12/24 06:44
ESR 77 mm/hour (0-20) H 06/11/24 07:42
Estimated Creat Clear 50 ml/min 06/12/24 06:44
Total Bilirubin 0.4 mg/dl (0.2-1.3) 06/11/24 07:42
AST 30 U/L (14-36) 06/11/24 07:42
ALT 26 U/L (0-35) 06/11/24 07:42
Alkaline Phosphatase 72 U/L (38-126) 06/11/24 07:42
C-Reactive Protein 61.40 mg/L (0.0-10.00) H 06/11/24 07:42
Most recent labs reviewed.
Micro Results:
06/10/24 14:08 Wound Culture - Final
Finger - Left S aureus-Methicillin Sensitive
Gram Stain - Final
06/10/24 Finger Xray: Soft tissue prominence and calcification is seen, most pronounced on the dorsal aspect overlying the distal phalanx of the left fifth digit. Marginal erosion is seen of the distal aspect of the middle phalanx, with overhanging
edges.Findings consistent with gout, as detailed above.
[2024-06-12] MEDS: DELTASONE 40 MG PO (13:46)
[2024-06-12] MEDS: REQUIP 4 MG PO (13:48)
--- NOTE | 2024-06-12 15:06 | CM ---
manager building reviewed patient's chart and met with patient and received a script from ID physician and plan is for patient to have IV Ancef at discharge, spring encaser met with patient to review infusion options and patient is agreeable to [facility], referral faxed to [facility]. Patient lives alone. Message left with Nimisha at [facility] to check on cost of home IV ABX for patient.
Plan; Referral sent to [facility] infusion.
[2024-06-12 15:37] VITALS: BP 144/83
[2024-06-12 16:51] LABS: Glucose - Point of Care 142 mg/dl (70-99)
[2024-06-12] MEDS: LOVENOX 40 MG SC (17:42)
[2024-06-12 21:10] LABS: Glucose - Point of Care 219 mg/dl (70-99)
[2024-06-12] MEDS: GLUCOPHAGE XR EXTENDED RELEASE 1000 MG PO (21:56)
[2024-06-12] MEDS: LIPITOR 10 MG PO (21:56)
[2024-06-12 23:35] VITALS: BP 136/79
[2024-06-13] MEDS: SYNTHROID 125 MCG PO (05:19)
[2024-06-13] MEDS: ANCEF 10 IV ×3 (05:19→21:44)
[2024-06-13 07:30] VITALS: BP 137/85
--- NOTE | 2024-06-13 08:00 | W.PN.UPDATE ---
Update Note
Progress Note Update
Patient had left upper extremity MRI yesterday and radiologist interpretation still pending. Dr. Taylor in OR today but hopes to review MRI for definitive recommendations. Suggest that she continue with Hibiclens soaks and cefazolin as ordered.
Uric acid is elevated and prednisone has been initiated. We will continue to observe for now.
[2024-06-13 08:27] LABS: Glucose - Point of Care 145 mg/dl (70-99)
[2024-06-13] MEDS: PROTONIX 40 MG PO (08:39)
[2024-06-13] MEDS: OSCAL CAL 500 500 MG PO (08:39)
[2024-06-13] MEDS: NEURONTIN 300 MG PO ×3 (08:39→21:44)
[2024-06-13] MEDS: PLAQUENIL 400 MG PO (08:39)
[2024-06-13] MEDS: PAXIL 10 MG PO ×2 (08:40→21:44)
[2024-06-13] MEDS: THERAGRAN 1 TABLET PO (08:40)
[2024-06-13] MEDS: VOLTAREN 75 MG PO (08:40)
[2024-06-13] MEDS: VITAMIN D3 (cholecalciferol) 25 MCG PO (08:41)
[2024-06-13] MEDS: DELTASONE 40 MG PO (08:41)
[2024-06-13] MEDS: ZYLOPRIM 100 MG PO (08:41)
[2024-06-13] MEDS: VITAMIN C 500 MG PO (08:42)
[2024-06-13] MEDS: NORVASC 5 MG PO (08:42)
[2024-06-13] MEDS: COLCHICINE 0.6 MG PO (08:42)
--- NOTE | 2024-06-13 09:04 | W.PN.HOSP.TC ---
Today's Communication/Plan
-
see bold
Assessment / Plan
Assessment / Plan
HPI: 74-year-old female with history of diabetes mellitus, polymyalgia rheumatica, rheumatoid arthritis on Plaquenil who recently was diagnosed with gout when she presented to her vessel builder with about 6 months history of left 5th distal finger
streak of redness with mild discomfort. No swelling at the time. At the end of April 2024 her vessel builder aspirated the finger, and saw multiple crystals under the microscope. She was diagnosed with gout. The same day rheumatology instilled
steroid onto the joint. She was then started on allopurinol and colchicine. Her finger did improve. The redness never did go away. About a week ago she accidentally banged her hand against the wall. Afterwards the finger became red and swollen.
She then noted yellowish-white substance draining from the previous aspiration/injection site. She went to urgent care on June 08 who aspirated the finger with a larger bore needle. Gout was also noted. She was discharged on cephalexin. The
urgent care culture grew MSSA, pansensitive.
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
# Superimposed MSSA infection/possible septic joint of DIP
06/08 Urgent care aspiration of finger +MSSA, pansensitive
Appreciate orthopedic surgery input, rec warm dilute Hibiclens soaks TID, MRI reviewed
Appreciate ID input, antibiotics changed to Ancef
Continue allopurinol, colchicine, diclofenac. Started on prednisone for acute gout flare 06/13
#Hyperkalemia
Potassium 5.3 today
Low potassium diet, hold lisinopril trend BMP
#Hypomagnesemia
Repleted and resolved
Type 2 diabetes
-Continue metformin, diabetic diet, sliding scale insulin
Essential hypertension
-Continue amlodipine
-Hold lisinopril secondary to hyperkalemia
Stage IIIa chronic kidney disease
-Monitor creatinine
Hypercholesterolemia
-Continue statin
Anxiety/depression
-Continue paroxetine
GERD
-Continue omeprazole
Restless leg syndrome
-Continue ropinirole
-Continue gabapentin
Hypothyroidism
-Continue levothyroxine
Polymyalgia rheumatica
-Continue hydroxychloroquine
Obesity due to excess calories
-Affects all aspects of care
DVT prophylaxis�subcu Lovenox
Full code
Total time spent to see the patient on the floor, examine the patient, review data and lab results, discuss treatment plan with patient, nursing staff around 41 minutes.
Physical Exam
General: Obese, No acute distress
HEENT: Normocephalic, Atraumatic, EOMI, MMM
Respiratory: Clear to Auscultation bilaterally
Cardiac: Normal S1/S2, Regular Rate and Rhythm
GI: Soft, Nontender, Nondistended, Normal Bowel Sounds
Extremities: No Clubbing, Cyanosis, or Edema
Msk: Left fifth finger distal interphalangeal joint + chamberlain black wound with tophaceous gout, + significant erythema and edema of the entire finger. + tenderness.
Neuro: Nonfocal/Grossly Intact
Psych: Calm, Cooperative
Anticipated Discharge: 24 - 48 hours
Subjective/Interval History
-
Date of Service: June 12, 2024
Patient reports that her finger pain is controlled with the pain medications. No fever, no vomiting. No chest pain, no shortness of breath.
Objective Data
-
Labs:
Laboratory Results
06/12/24
06:44
Sodium 141
Potassium 4.8
Chloride 103
Carbon Dioxide 23
BUN 19 H
Creatinine 1.2 H
Glucose 129 H
Calcium 9.2
Vital Signs:
Vital Signs
Temp Pulse Resp BP Pulse Ox
97.9 F 78 18 144/83 97
06/12/24 15:37 06/12/24 15:37 06/12/24 15:37 06/12/24 15:37 06/12/24 15:37
I&O
06/11/24 06/12/24 06/13/24
06:59 06:59 06:59
Intake Total 240 / 240 1440 / 1440
Balance 240 / 240 1440 / 1440
[2024-06-13 09:30] LABS: Blood Urea Nitrogen 25 mg/dl (7-17); Calcium 9.6 mg/dl (8.4-10.2); Carbon Dioxide 23 mmol/L (22-30); Chloride 104 mmol/L (98-107); Estimated Creatinine Clearance 50 ml/min; Glucose 139 mg/dl (70-99); Magnesium 1.7 mg/dl (1.6-2.3); Potassium 5.3 mmol/L (3.5-5.1); Sodium 142 mmol/L (135-145)
--- NOTE | 2024-06-13 11:01 | W.PN.ID1 ---
Date of Service
Date of Service: June 13, 2024
Today's Communication
- Continue cefazolin 2gIV q8h (d3) x 6 weeks till 07/22/2024.
Home Infusion sheet submitted to hospice case manager.
Assessment / Plan
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
- I checked Uric acid -> still elevated at 8.3 while on chronic allopurinol
- Also on chronic colchicine
- Some improvement with steroid.
- Continue prednisone 40mg po daily (d2) ->Will defer to Rheum for further management.
# Superimposed MSSA infection/possible septic joint of DIP
-06/08 Urgent care aspiration of finger +MSSA, pansensitive
- 06/09 ED wound swab MSSA
-MRI L 5th DIP joint effusion/synovitis - gout vs septic joint
- Continue cefazolin 2gIV q8h (d3) x 6 weeks till 07/22/2024.
Home Infusion sheet submitted to hospice case manager.
Follow weekly CRP, CBC, CMP.
- Ordered PICC.
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
Hypertension
Diabetes mellitus
Polymyalgia rheumatica
Rheumatoid arthritis on Plaquenil
Fibromyalgia
Gout
hypothyroidism
Osteoporosis
Osteoarthritis
Restless leg syndrome
R TKR
Right total hip replacement
Left ankle ORIF with subsequent removal of hardware
Urinary sphincter sling
Chief Complaint
-: Cellulitis and Other (tophaceous gout)
Subjective / Review of Systems
Finger slightly better.
Vital Signs / Physical Exam
Vital Signs
Vital Signs
Temp Pulse Resp BP Pulse Ox
98.5 F 76 20 137/85 97
06/13/24 07:30 06/13/24 07:30 06/13/24 07:30 06/13/24 07:30 06/13/24 07:30
Physical Exam
Constitutional: No Acute Distress
Pulmonary: Clear
Gastrointestinal: Soft, Non Tender, Non Distended and Normal Bowel Sounds
Extremities: Negative Edema
Wound: Other (left 5th finger DIP wound black with tophi output, finger edematous, erythema slightly receding from marked line proximally.)
Neurological: Awake and AO x 3
Objective Data
Lab Data
Lab Results
06/11/24 07:42
06/13/24 08:21
ESR 77 mm/hour (0-20) H 06/11/24 07:42
Estimated Creat Clear 50 ml/min 06/13/24 08:21
Total Bilirubin 0.4 mg/dl (0.2-1.3) 06/11/24 07:42
AST 30 U/L (14-36) 06/11/24 07:42
ALT 26 U/L (0-35) 06/11/24 07:42
Alkaline Phosphatase 72 U/L (38-126) 06/11/24 07:42
C-Reactive Protein 61.40 mg/L (0.0-10.00) H 06/11/24 07:42
Most recent labs reviewed.
Micro Results:
06/10/24 14:08 Wound Culture - Final
Finger - Left S aureus-Methicillin Sensitive
Gram Stain - Final
06/13/24 LUE MRI: Fifth distal interphalangeal joint effusion/synovitis, periarticular soft tissue edema, and bone marrow signal alteration in the fifth middle and distal phalanges. Differential considerations include an inflammatory arthritis in the
setting of known gout, and/or septic arthritis in the setting of a recent MSSA positive aspiration of the fifth finger.
06/10/24 Finger Xray: Soft tissue prominence and calcification is seen, most pronounced on the dorsal aspect overlying the distal phalanx of the left fifth digit. Marginal erosion is seen of the distal aspect of the middle phalanx, with overhanging
edges.Findings consistent with gout, as detailed above.
[2024-06-13 12:45] LABS: Glucose - Point of Care 180 mg/dl (70-99)
[2024-06-13] MEDS: REQUIP 4 MG PO (13:59)
--- NOTE | 2024-06-13 13:59 | CM ---
hotel recreational facilities manager spoke with patient and spoke with Nimisha from [facility] infusion, Nimisha will be out tomorrow to teach patient home IV ABX, cost of home IV ABX are $20 per week for medicine and supplies and nursing are covered at 80%, patient made
aware.
Plan; Nimisha from infusion [facility] will be out tomorrow to provide teaching for patient, patient's plan is to return to home alone when stable.
[2024-06-13] MEDS: TYLENOL 650 MG PO (17:07)
[2024-06-13] MEDS: LOVENOX 40 MG SC (18:02)
[2024-06-13 21:39] LABS: Glucose - Point of Care 185 mg/dl (70-99)
[2024-06-13] MEDS: LIPITOR 10 MG PO (21:44)
[2024-06-13] MEDS: GLUCOPHAGE XR EXTENDED RELEASE 1000 MG PO (21:44)
[2024-06-13 23:25] VITALS: BP 136/80
[2024-06-14] MEDS: ANCEF 10 IV ×3 (05:24→21:10)
[2024-06-14] MEDS: REFRESH CELLUVISC GEL 1 DROPS BOTH EYES ×2 (05:25→21:10)
[2024-06-14] MEDS: SYNTHROID 125 MCG PO (05:25)
[2024-06-14 05:49] LABS: Blood Urea Nitrogen 33 mg/dl (7-17); Calcium 9.4 mg/dl (8.4-10.2); Carbon Dioxide 26 mmol/L (22-30); Chloride 104 mmol/L (98-107); Estimated Creatinine Clearance 54 ml/min; Glucose 103 mg/dl (70-99); Magnesium 1.7 mg/dl (1.6-2.3); Sodium 143 mmol/L (135-145); eGFR 52.73
[2024-06-14 07:00] VITALS: BP 130/69
[2024-06-14 07:32] LABS: Glucose - Point of Care 108 mg/dl (70-99)
--- NOTE | 2024-06-14 08:56 | W.PN.HOSP.TC ---
Today's Communication/Plan
-
Discharge tomorrow to home with [facility] Visiting nurses and home infusion.
Assessment / Plan
Assessment / Plan
HPI: 74-year-old female with history of diabetes mellitus, polymyalgia rheumatica, rheumatoid arthritis on Plaquenil who recently was diagnosed with gout when she presented to her field account manager with about 6 months history of left 5th distal finger
streak of redness with mild discomfort. No swelling at the time. At the end of April 2024 her field account manager aspirated the finger, and saw multiple crystals under the microscope. She was diagnosed with gout. The same day rheumatology instilled
steroid onto the joint. She was then started on allopurinol and colchicine. Her finger did improve. The redness never did go away. About a week ago she accidentally banged her hand against the wall. Afterwards the finger became red and swollen.
She then noted yellowish-white substance draining from the previous aspiration/injection site. She went to urgent care on June 08 who aspirated the finger with a larger bore needle. Gout was also noted. She was discharged on cephalexin. The
urgent care culture grew MSSA, pansensitive.
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
# Superimposed MSSA infection/possible septic joint of DIP
06/08 Urgent care aspiration of finger +MSSA, pansensitive
Appreciate orthopedic surgery input, rec warm dilute Hibiclens soaks TID, MRI shows consistent with gouty tophaceous flareup and surrounding cellulitis -no surgical intervention recommended
Appreciate ID input, antibiotics changed to Ancef. ID recommends 6 weeks of IV Ancef. PICC inserted.
Continue allopurinol, colchicine, diclofenac. Started on prednisone for acute gout flare 06/13
Discharge tomorrow to home with [facility] Visiting nurses and home infusion.
#Hyperkalemia
Potassium 5.3 today
Low potassium diet, hold lisinopril trend BMP
#Hypomagnesemia
Repleted and resolved
Type 2 diabetes
-Continue metformin, diabetic diet, sliding scale insulin
Essential hypertension
-Continue amlodipine
-Hold lisinopril secondary to hyperkalemia
Stage IIIa chronic kidney disease
-Monitor creatinine
Hypercholesterolemia
-Continue statin
Anxiety/depression
-Continue paroxetine
GERD
-Continue omeprazole
Restless leg syndrome
-Continue ropinirole
-Continue gabapentin
Hypothyroidism
-Continue levothyroxine
Polymyalgia rheumatica
-Continue hydroxychloroquine
Obesity due to excess calories
-Affects all aspects of care
DVT prophylaxis�subcu Lovenox
Full code
Total time spent to see the patient on the floor, examine the patient, review data and lab results, discuss treatment plan with patient, nursing staff around 38 minutes.
Physical Exam
General: Obese, No acute distress
HEENT: Normocephalic, Atraumatic, EOMI, MMM
Respiratory: Clear to Auscultation bilaterally
Cardiac: Normal S1/S2, Regular Rate and Rhythm
GI: Soft, Nontender, Nondistended, Normal Bowel Sounds
Extremities: No Clubbing, Cyanosis, or Edema
Msk: Left fifth finger distal interphalangeal joint + chamberlain black wound with tophaceous gout, + significant erythema and edema of the entire finger. + tenderness.
Neuro: Nonfocal/Grossly Intact
Psych: Calm, Cooperative
Anticipated Discharge: Within 24 hours
Subjective/Interval History
-
Date of Service: June 14, 2024
Patient reports her finger pain is 2 out of 10 in intensity. No fever, no chest pain, no shortness of breath. No vomiting.
Objective Data
-
Labs:
Laboratory Results
06/14/24
04:59
Sodium 143
Potassium 5.0
Chloride 104
Carbon Dioxide 26
BUN 33 H
Creatinine 1.1 H
Glucose 103 H
Calcium 9.4
Vital Signs:
Vital Signs
Temp Pulse Resp BP Pulse Ox
97.0 F 75 20 136/80 93
06/13/24 23:25 06/13/24 23:25 06/13/24 23:25 06/13/24 23:25 06/13/24 23:25
I&O
06/13/24 06/14/24 06/15/24
06:59 06:59 06:59
Intake Total 960 / 960 1320 / 1320
Balance 960 / 960 1320 / 1320
[2024-06-14] MEDS: COLCHICINE 0.6 MG PO (09:02)
[2024-06-14] MEDS: VITAMIN C 500 MG PO (09:02)
[2024-06-14] MEDS: PAXIL 10 MG PO ×2 (09:02→20:59)
[2024-06-14] MEDS: PROTONIX 40 MG PO (09:02)
[2024-06-14] MEDS: ZYLOPRIM 100 MG PO (09:03)
[2024-06-14] MEDS: VOLTAREN 75 MG PO (09:03)
[2024-06-14] MEDS: PLAQUENIL 400 MG PO (09:03)
[2024-06-14] MEDS: NEURONTIN 300 MG PO ×3 (09:03→21:10)
[2024-06-14] MEDS: DELTASONE 40 MG PO (09:03)
[2024-06-14] MEDS: OSCAL CAL 500 500 MG PO (09:03)
[2024-06-14] MEDS: NORVASC 5 MG PO (09:03)
[2024-06-14] MEDS: VITAMIN D3 (cholecalciferol) 25 MCG PO (09:03)
[2024-06-14] MEDS: THERAGRAN 1 TABLET PO (09:03)
--- NOTE | 2024-06-14 12:25 | W.PN.ID1 ---
Date of Service
Date of Service: June 14, 2024
Today's Communication
Continue cefazolin. Home infusion set up.
Anticipate dc home tomorrow when hyperkalemia resolves.
Assessment / Plan
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
- Uric acid -> still elevated at 8.3 while on chronic allopurinol
- Also on chronic colchicine
- Positive improvement with steroid.
- Continue prednisone 40mg po daily (d3) ->Will defer to Rheum for further management.
# Superimposed MSSA infection/possible septic joint of DIP
-06/08 Urgent care aspiration of finger +MSSA, pansensitive
- 06/09 ED wound swab MSSA
-MRI L 5th DIP joint effusion/synovitis - gout vs septic joint
- Continue cefazolin 2gIV q8h (d3) x 6 weeks till 07/22/2024.
Home Infusion sheet submitted to family independence case manager.
Follow weekly CRP, CBC, CMP.
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
Hypertension
Diabetes mellitus
Polymyalgia rheumatica
Rheumatoid arthritis on Plaquenil
Fibromyalgia
Gout
hypothyroidism
Osteoporosis
Osteoarthritis
Restless leg syndrome
R TKR
Right total hip replacement
Left ankle ORIF with subsequent removal of hardware
Urinary sphincter sling
Chief Complaint
-: Cellulitis and Other (tophaceous gout)
Subjective / Review of Systems
Finger better.
Vital Signs / Physical Exam
Vital Signs
Vital Signs
Temp Pulse Resp BP Pulse Ox
98.0 F 62 18 130/69 94
06/14/24 07:00 06/14/24 07:00 06/14/24 07:00 06/14/24 07:00 06/14/24 08:00
Physical Exam
Constitutional: No Acute Distress
Pulmonary: Clear
Gastrointestinal: Soft, Non Tender, Non Distended and Normal Bowel Sounds
Extremities: Negative Edema
Wound: Other (left 5th finger DIP wound black with tophi output, finger less edematous, erythema receding from marked line proximally.)
Neurological: Awake and AO x 3
Lines: PICC (RUE intact)
Objective Data
Lab Data
Lab Results
06/11/24 07:42
06/14/24 04:59
ESR 77 mm/hour (0-20) H 06/11/24 07:42
Estimated Creat Clear 54 ml/min 06/14/24 04:59
Total Bilirubin 0.4 mg/dl (0.2-1.3) 06/11/24 07:42
AST 30 U/L (14-36) 06/11/24 07:42
ALT 26 U/L (0-35) 06/11/24 07:42
Alkaline Phosphatase 72 U/L (38-126) 06/11/24 07:42
C-Reactive Protein 61.40 mg/L (0.0-10.00) H 06/11/24 07:42
Most recent labs reviewed.
Micro Results:
06/10/24 14:08 Wound Culture - Final
Finger - Left S aureus-Methicillin Sensitive
Gram Stain - Final
06/13/24 LUE MRI: Fifth distal interphalangeal joint effusion/synovitis, periarticular soft tissue edema, and bone marrow signal alteration in the fifth middle and distal phalanges. Differential considerations include an inflammatory arthritis in the
setting of known gout, and/or septic arthritis in the setting of a recent MSSA positive aspiration of the fifth finger.
06/10/24 Finger Xray: Soft tissue prominence and calcification is seen, most pronounced on the dorsal aspect overlying the distal phalanx of the left fifth digit. Marginal erosion is seen of the distal aspect of the middle phalanx, with overhanging
edges.Findings consistent with gout, as detailed above.
Care Review
Plan reviewed with: Physician (Dr. Nidia Benitez)
[2024-06-14] MEDS: REQUIP 4 MG PO (14:06)
[2024-06-14 15:00] VITALS: BP 150/92
--- NOTE | 2024-06-14 16:10 | CM ---
Teaching took place with Nimisha from [facility] today, patient to have 2 doses tomorrow and then home per patient, PICC information, and chest ray provided to [facility]. Cost of medication, supplies and nursing provided to patient.
Plan; Possible discharge tomorrow to home with [facility] Visiting nurses and home infusion.
[2024-06-14] MEDS: LOVENOX 40 MG SC (17:38)
[2024-06-14] MEDS: GLUCOPHAGE XR EXTENDED RELEASE 1000 MG PO (21:10)
[2024-06-14] MEDS: LIPITOR 10 MG PO (21:10)
[2024-06-14 23:27] VITALS: BP 136/77
[2024-06-15] MEDS: ANCEF 10 IV ×2 (05:20→14:06)
[2024-06-15] MEDS: SYNTHROID 125 MCG PO (05:20)
[2024-06-15 07:00] VITALS: BP 146/88
[2024-06-15 07:30] LABS: Blood Urea Nitrogen 36 mg/dl (7-17); Calcium 9.4 mg/dl (8.4-10.2); Carbon Dioxide 24 mmol/L (22-30); Chloride 103 mmol/L (98-107); Estimated Creatinine Clearance 54 ml/min; Glucose 90 mg/dl (70-99); Magnesium 1.7 mg/dl (1.6-2.3); Potassium 4.8 mmol/L (3.5-5.1); Sodium 143 mmol/L (135-145); eGFR 52.73
--- NOTE | 2024-06-15 08:30 | W.PN.HOSP.TC ---
Today's Communication/Plan
-
Stable for discharge today
Assessment / Plan
Assessment / Plan
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
streak of redness with mild discomfort. No swelling at the time. At the end of April 2024 her route delivery driver aspirated the finger, and saw multiple crystals under the microscope. She was diagnosed with gout. The same day rheumatology instilled
steroid onto the joint. She was then started on allopurinol and colchicine. Her finger did improve. The redness never did go away. About a week ago she accidentally banged her hand against the wall. Afterwards the finger became red and swollen.
She then noted yellowish-white substance draining from the previous aspiration/injection site. She went to urgent care on June 08 who aspirated the finger with a larger bore needle. Gout was also noted. She was discharged on cephalexin. The
urgent care culture grew MSSA, pansensitive.
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
# Superimposed MSSA infection/possible septic joint of DIP
06/08 Urgent care aspiration of finger +MSSA, pansensitive
Appreciate orthopedic surgery input, rec warm dilute Hibiclens soaks TID, MRI shows consistent with gouty tophaceous flareup and surrounding cellulitis -no surgical intervention recommended
Appreciate ID input, antibiotics changed to Ancef. ID recommends 6 weeks of IV Ancef. PICC inserted.
Continue allopurinol, colchicine, diclofenac. Started on prednisone for acute gout flare 06/13, continue for 4 more days to complete an 8 day course.
Discharge today to home with [facility] Visiting nurses and home infusion.
Follow-up with PCP in 1 week, rheumatology & ID in 3-4 weeks, and orthopedic surgery as needed
#Hyperkalemia
Potassium 4.8 on a low potassium diet with holding lisinopril
Continue low potassium diet upon discharge, recommend decreasing lisinopril from 10 mg to 5 mg daily
Repeat potassium with her labs with the [employer]
#Hypomagnesemia
Repleted and resolved
Type 2 diabetes
-Continue metformin, diabetic diet, sliding scale insulin
Essential hypertension
-Continue amlodipine
-May resume lisinopril upon discharge, recommend decreasing lisinopril from 10 mg to 5 mg daily
Stage IIIa chronic kidney disease
-Monitor creatinine
Hypercholesterolemia
-Continue statin
Anxiety/depression
-Continue paroxetine
GERD
-Continue omeprazole
Restless leg syndrome
-Continue ropinirole
-Continue gabapentin
Hypothyroidism
-Continue levothyroxine
Polymyalgia rheumatica
-Continue hydroxychloroquine
Obesity due to excess calories
-Affects all aspects of care
DVT prophylaxis�subcu Lovenox
Full code
Physical Exam
General: Obese, No acute distress
HEENT: Normocephalic, Atraumatic, EOMI, MMM
Respiratory: Clear to Auscultation bilaterally
Cardiac: Normal S1/S2, Regular Rate and Rhythm
GI: Soft, Nontender, Nondistended, Normal Bowel Sounds
Extremities: No Clubbing, Cyanosis, or Edema
Msk: Left fifth finger distal interphalangeal joint + chamberlain black wound with tophaceous gout, + significant erythema and edema of the entire finger. + tenderness, although improved from prior
Neuro: Nonfocal/Grossly Intact
Psych: Calm, Cooperative
Anticipated Discharge: Today
Subjective/Interval History
-
Date of Service: June 15, 2024
Patient states that her fifth finger does not hurt her. No fever, no vomiting. No chest pain, no shortness of breath. She is eager for discharge today.
Objective Data
-
Labs:
Laboratory Results
06/15/24
05:33
Sodium 143
Potassium 4.8
Chloride 103
Carbon Dioxide 24
BUN 36 H
Creatinine 1.1 H
Glucose 90
Calcium 9.4
Vital Signs:
Vital Signs
Temp Pulse Resp BP Pulse Ox
97.6 F 67 18 146/88 94
06/15/24 07:00 06/15/24 07:00 06/15/24 07:00 06/15/24 07:00 06/15/24 08:00
I&O
06/14/24 06/15/24 06/16/24
06:59 06:59 06:59
Intake Total 1320 / 1320 480 / 480
Balance 1320 / 1320 480 / 480
[2024-06-15] MEDS: COLCHICINE 0.6 MG PO (08:42)
[2024-06-15] MEDS: OSCAL CAL 500 500 MG PO (08:42)
[2024-06-15] MEDS: ZYLOPRIM 100 MG PO (08:42)
[2024-06-15] MEDS: VITAMIN D3 (cholecalciferol) 25 MCG PO (08:42)
[2024-06-15] MEDS: DELTASONE 40 MG PO (08:42)
[2024-06-15] MEDS: NORVASC 5 MG PO (08:42)
[2024-06-15] MEDS: THERAGRAN 1 TABLET PO (08:43)
[2024-06-15] MEDS: PLAQUENIL 400 MG PO (08:43)
[2024-06-15] MEDS: VOLTAREN 75 MG PO (08:43)
[2024-06-15] MEDS: NEURONTIN 300 MG PO (08:43)
[2024-06-15] MEDS: VITAMIN C 500 MG PO (08:43)
[2024-06-15] MEDS: PROTONIX 40 MG PO (08:43)
[2024-06-15] MEDS: PAXIL 10 MG PO (08:43)
--- NOTE | 2024-06-15 12:09 | W.PN.ID1 ---
Date of Service
Date of Service: June 15, 2024
Today's Communication
Continue antibiotics.
Assessment / Plan
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
- Uric acid -> still elevated at 8.3 while on chronic allopurinol
- Also on chronic colchicine
- Positive improvement with steroid.
- Will defer to Rheum for further management of steroids
# Superimposed MSSA infection / suspected septic joint of DIP
-06/08 Urgent care aspiration of finger +MSSA, pansensitive
- 06/09 ED wound swab MSSA
-MRI L 5th DIP joint effusion/synovitis - gout vs septic joint
--> Continue cefazolin 2gIV q8h (d3) x 6 weeks till 07/22/2024.
Home Infusion sheet submitted to supervisor case loading.
Follow weekly CRP, CBC, CMP.
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
Hypertension
Diabetes mellitus
Polymyalgia rheumatica
Rheumatoid arthritis on Plaquenil
Fibromyalgia
Gout
hypothyroidism
Osteoporosis
Osteoarthritis
Restless leg syndrome
R TKR
Right total hip replacement
Left ankle ORIF with subsequent removal of hardware
Urinary sphincter sling
Chief Complaint
-: Cellulitis and Other (tophaceous gout)
Subjective / Review of Systems
Review of Systems: No Fever and No Chills
Vital Signs / Physical Exam
Vital Signs
Vital Signs
Temp Pulse Resp BP Pulse Ox
97.6 F 67 18 146/88 94
06/15/24 07:00 06/15/24 07:00 06/15/24 07:00 06/15/24 07:00 06/15/24 08:00
Physical Exam
Constitutional: No Acute Distress, Comfortable and Non-toxic
Eyes: Sclera Anicteric
Pulmonary: Non Labored
Extremities: Other (Left fifth finger with erythema and mal-angulation)
Neurological: Awake and Alert
Psychological: Calm
Lines: PICC
Objective Data
Lab Data
Lab Results
06/11/24 07:42
06/15/24 05:33
ESR 77 mm/hour (0-20) H 06/11/24 07:42
Estimated Creat Clear 54 ml/min 06/15/24 05:33
Total Bilirubin 0.4 mg/dl (0.2-1.3) 06/11/24 07:42
AST 30 U/L (14-36) 06/11/24 07:42
ALT 26 U/L (0-35) 06/11/24 07:42
Alkaline Phosphatase 72 U/L (38-126) 06/11/24 07:42
C-Reactive Protein 61.40 mg/L (0.0-10.00) H 06/11/24 07:42
Most recent labs reviewed.
Micro Results:
06/10/24 14:08 Wound Culture - Final
Finger - Left S aureus-Methicillin Sensitive
Gram Stain - Final
06/13/24 LUE MRI: Fifth distal interphalangeal joint effusion/synovitis, periarticular soft tissue edema, and bone marrow signal alteration in the fifth middle and distal phalanges. Differential considerations include an inflammatory arthritis in the
setting of known gout, and/or septic arthritis in the setting of a recent MSSA positive aspiration of the fifth finger.
06/10/24 Finger Xray: Soft tissue prominence and calcification is seen, most pronounced on the dorsal aspect overlying the distal phalanx of the left fifth digit. Marginal erosion is seen of the distal aspect of the middle phalanx, with overhanging
edges.Findings consistent with gout, as detailed above.
--- NOTE | 2024-06-15 12:30 | W.DCSUMMARY ---
Discharge Summary
Discharge Data
Date of Admission: 06/10/24
Date of Discharge: 06/15/24
-
Pending Results: No
Hospital Course
Discharge diagnosis:
Tophaceous gout flare of the left fifth finger
Left fifth finger cellulitis
Hyperkalemia
Hypomagnesemia
Essential hypertension
Diabetes
Chronic kidney disease
Gastroesophageal reflux disease
Obesity due to excess calories
Consults: ID, orthopedic surgery
MRI Left Hand:
Fifth distal interphalangeal joint effusion/synovitis, periarticular soft tissue edema, and bone marrow signal alteration in the fifth middle and distal phalanges. Differential considerations include an inflammatory arthritis in the setting of known
gout, and/or septic arthritis in the setting of a recent MSSA positive aspiration of the fifth finger.
Hospital course:
74-year-old female with a past medical history of CKD, HTN, DM, GERD, and obesity was admitted for tophaceous gout flare of her left finger with surrounding cellulitis. Patient was seen conjunction with ID and orthopedic surgery. Orthopedic
surgery recommends conservative management with antibiotics, treating the gout, and Hibiclens soaks. She had aspiration of her finger at urgent care on 06/08/2024, cultures grew out MSSA, pansensitive. Patient was treated with IV Ancef.
For her gout flare, she was continued on colchicine. She was also started on prednisone 40 mg p.o. daily.
Her hospital course was complicated by hyperkalemia. This resolved with holding her lisinopril, and placing her on a low potassium diet. Her potassium was 4.8 on the day of discharge. She can resume her lisinopril, recommend decreasing the dose
from 10 mg daily to 5 mg daily. She is to continue a low potassium diet upon discharge.
Patient also had hypomagnesemia, this was repleted and resolved.
Patient's multiple medical conditions have been optimized. ID recommends a 6-week course of IV Ancef. She had a PICC inserted, and has been set up for home infusion services. She can continue prednisone 40 mg p.o. daily for 4 more days. She
needs to follow-up with her primary care doctor in 1 week, ID in the office, rheumatology in the office, and orthopedic surgery as needed.
Disposition: Home with home care
Discharge planning: Required 50 minutes
Discharge Plan
-
Patient Disposition: Home with Home Care
Discharge Diagnosis/Procedures: Left fifth finger gout flare with surrounding cellulitis, hyperkalemia/high potassium, chronic kidney disease, type 2 diabetes, hypomagnesemia/low magnesium
Condition: Good
Diet: As tolerated
Activity: As tolerated
Activity Restrictions/Additional Instructions:
Decrease lisinopril to 5 mg daily due to high potassium.
Continue a low potassium diet.
Continue cefazolin 2gIV every 8 hours x 6 weeks till 07/22/2024.
Your home infusion company will check blood work, they will also check a potassium level.
Ask them what your potassium levels are.
Continue prednisone for 4 more days. Follow-up with your supervisor insecticide for your gout flare.
Follow-up with your primary care doctor in 1 week, the infection doctor in 4-6 weeks, and orthopedic surgery as needed.
Referrals:
Evelina Mccray MD [Family Provider] - in one week
Zach Taylor MD [Active] - in four to six weeks
Angie Serrano MD [Active] - in four to six weeks
Prescriptions:
New
prednisone 20 mg Tablet
40 mg PO DAILY 4 Days Qty: 8 0RF
cefazolin 10 gram Recon Soln
2 g IV Q8H Qty: 0 0RF
oxycodone 5 mg Tablet
5 mg PO Q4HPRN PRN (Reason: mod-severe pain) Qty: 20 0RF
Continued
paroxetine HCl 10 MG tablet
10 mg PO BID Qty: 0 0RF
lovastatin 40 MG tablet
40 mg PO HS Qty: 0 0RF
levothyroxine 125 MCG tablet
125 mcg PO DAILY Qty: 0 0RF
hydroxychloroquine 200 MG tablet
400 mg PO DAILY Qty: 0 0RF
metformin 500 MG tablet extended release 24 hr
2,000 mg PO HS Qty: 0 0RF
cholecalciferol (vitamin D3) 1,000 UNITS tablet
1,000 units PO DAILY Qty: 0 0RF
ropinirole 4 MG tablet
4 mg PO DAILY@1400
omeprazole 20 MG tablet,disintegrat, delay rel
20 mg PO DAILY
gabapentin 600 mg Tablet
600 mg PO TID
therapeutic multivitamin Tablet
1 tab PO DAILY
amlodipine 5 mg Tablet
5 mg PO DAILY
allopurinol 100 mg Tablet
100 mg PO DAILY
calcium carbonate [Calcium 600] 600 mg calcium (1,500 mg) Tablet
600 mg PO DAILY
ascorbic acid (vitamin C) [Vitamin C] 500 mg Tablet
500 mg PO DAILY
carboxymethylcellulose sodium [Refresh Tears] 0.5 % Drops
1 drp BOTH EYES QIDPRN PRN (Reason: irritated eyes)
colchicine 0.6 mg Tablet
0.6 mg PO DAILY
ketoconazole 2 % Cream
1 applic TOPICAL DAILYPRN PRN (Reason: yeast infection)
cephalexin 500 mg capsule
500 mg PO BID
Changed
lisinopril 10 MG tablet
5 mg PO DAILY Qty: 0 0RF
Discontinued
diclofenac sodium 75 MG tablet,delayed release (DR/EC)
75 mg PO DAILY Qty: 0 0RF
Rx Instructions:
take with food
drink plenty of water daily if taking this med
Discharge Orders:
Discharge Patient (As Directed); Ordered 06/15/24
Ordered By: Eusebio Benitez
Discharge Date and Time
Discharge Date/Time: 06/15/24 15:02
Print Language: CHINESE
[2024-06-15] MEDS: REQUIP 4 MG PO (14:06)
--- NOTE | 2024-06-15 14:37 | CM ---
Pt for dc today.
IMM issued verbally and understood by pt.
Pt to drive self home. IV's were left at pts home and pt educated.
[facility] RN's to follow up after dc.
== END 2024-06-15 15:02 | disposition home or self-care (01) | DRG 549 ==
LOC: 4 WEST ACU 17:57
PROVIDERS: Nurse Practitioner; ADMITTING PHYSICIAN Hospitalist; ATTENDING PHYSICIAN Family Medicine; CONSULT PHYSICIAN Internal Medicine Infectious Disease; CONSULT PHYSICIAN Orthopaedic Surgery Hand Surgery; EMERGENCY PHYSICIAN Emergency Medicine; FAMILY PHYSICIAN Family Medicine
DX: M00.842 Arthritis due to other bacteria, left hand (principal); L03.114 Cellulitis of left upper limb; M1A.4 Other secondary chronic gout; E11.69 Type 2 diabetes mellitus with other specified complication; E11.22 Type 2 diabetes mellitus with diabetic chronic kidney disease; M1A.9XX1 Chronic gout, unspecified, with tophus (tophi); L03.012 Cellulitis of left finger; I12.9 Hypertensive chronic kidney disease with stage 1 through stage 4 chronic kidney disease, or unspecified chronic kidney disease; E78.00 Pure hypercholesterolemia, unspecified; F32.A Depression, unspecified; F41.9 Anxiety disorder, unspecified; K21.9 Gastro-esophageal reflux disease without esophagitis; G25.81 Restless legs syndrome; E03.9 Hypothyroidism, unspecified; M35.3 Polymyalgia rheumatica; Z87.891 Personal history of nicotine dependence; M06.9 Rheumatoid arthritis, unspecified; E87.5 Hyperkalemia; E83.42 Hypomagnesemia; N18.31 Chronic kidney disease, stage 3a; E66.09 Other obesity due to excess calories; Z68.36 Body mass index [BMI] 36.0-36.9, adult; E78.5 Hyperlipidemia, unspecified; M00.9 Pyogenic arthritis, unspecified
CPT/HCPCS: 71045; 73140; 73218; 80048; 80053; 82962; 83735; 84550; 85025; 85652; 86140; 87070; 87147; 87186; 87205; 99285

== ENCOUNTER → 2024-07-12 07:47 | Outpatient (REF) | payer OTHER, SELFPAY | LOC: WOUND 07:47 | PROVIDERS: ATTENDING PHYSICIAN Surgery; FAMILY PHYSICIAN Family Medicine | DX: S61.207A Unspecified open wound of left little finger without damage to nail, initial encounter (principal); M1A.0421 Idiopathic chronic gout, left hand, with tophus (tophi); E11.69 Type 2 diabetes mellitus with other specified complication; E66.9 Obesity, unspecified; N18.31 Chronic kidney disease, stage 3a; M1A.09X0 Idiopathic chronic gout, multiple sites, without tophus (tophi); X58.XXXA Exposure to other specified factors, initial encounter; E11.22 Type 2 diabetes mellitus with diabetic chronic kidney disease | CPT/HCPCS: 97597; 99204 ==

== ENCOUNTER → 2024-07-19 13:44 | Outpatient (REF) | payer OTHER, SELFPAY | LOC: WOUND 13:44 | PROVIDERS: ATTENDING PHYSICIAN Surgery; FAMILY PHYSICIAN Family Medicine | DX: S61.207A Unspecified open wound of left little finger without damage to nail, initial encounter (principal); M1A.0421 Idiopathic chronic gout, left hand, with tophus (tophi); E11.69 Type 2 diabetes mellitus with other specified complication; E66.9 Obesity, unspecified; N18.31 Chronic kidney disease, stage 3a; M1A.09X0 Idiopathic chronic gout, multiple sites, without tophus (tophi); X58.XXXA Exposure to other specified factors, initial encounter | CPT/HCPCS: 97597 ==

== ENCOUNTER → 2024-07-26 13:03 | Outpatient (REF) | payer OTHER, SELFPAY | LOC: WOUND 13:03 | PROVIDERS: ATTENDING PHYSICIAN Surgery; FAMILY PHYSICIAN Family Medicine | DX: S61.207A Unspecified open wound of left little finger without damage to nail, initial encounter (principal); M1A.0421 Idiopathic chronic gout, left hand, with tophus (tophi); E11.69 Type 2 diabetes mellitus with other specified complication; E66.9 Obesity, unspecified; N18.31 Chronic kidney disease, stage 3a; M1A.09X0 Idiopathic chronic gout, multiple sites, without tophus (tophi); X58.XXXA Exposure to other specified factors, initial encounter | CPT/HCPCS: 97597 ==

== ENCOUNTER → 2024-08-05 12:57 | Outpatient (REF) | payer OTHER, SELFPAY | LOC: WOUND 12:57 | PROVIDERS: ATTENDING PHYSICIAN Surgery; FAMILY PHYSICIAN Family Medicine | DX: S61.207A Unspecified open wound of left little finger without damage to nail, initial encounter (principal); M1A.0421 Idiopathic chronic gout, left hand, with tophus (tophi); E11.69 Type 2 diabetes mellitus with other specified complication; E66.9 Obesity, unspecified; N18.31 Chronic kidney disease, stage 3a; M1A.09X0 Idiopathic chronic gout, multiple sites, without tophus (tophi); X58.XXXA Exposure to other specified factors, initial encounter | CPT/HCPCS: 99212 ==

== ENCOUNTER → 2024-08-30 13:32 | Outpatient (REF) | payer OTHER, SELFPAY | LOC: HWWDC 13:32 | PROVIDERS: ATTENDING PHYSICIAN Family Medicine | DX: Z12.31 Encounter for screening mammogram for malignant neoplasm of breast (principal) | CPT/HCPCS: 77063; 77067 ==

== ENCOUNTER 2024-09-06 12:00 | Outpatient (RCR) | payer OTHER, SELFPAY | END 2024-09-06 23:59 | disposition home or self-care (01) | LOC: ROT 12:00 | PROVIDERS: ATTENDING PHYSICIAN Orthopaedic Surgery Hand Surgery; FAMILY PHYSICIAN Family Medicine | DX: M19.042 Primary osteoarthritis, left hand (principal); Z73.6 Limitation of activities due to disability; M10.9 Gout, unspecified | CPT/HCPCS: 97110; 97140; 97166; 97535; 97760 ==

== ENCOUNTER 2024-09-17 14:49 | Outpatient (RCR) | payer OTHER, SELFPAY | END 2024-09-17 23:59 | disposition home or self-care (01) | LOC: ROT 14:49 | PROVIDERS: ATTENDING PHYSICIAN Orthopaedic Surgery Hand Surgery; FAMILY PHYSICIAN Family Medicine | DX: M19.042 Primary osteoarthritis, left hand (principal); Z73.6 Limitation of activities due to disability; M10.9 Gout, unspecified | CPT/HCPCS: 97110; 97140; 97535 ==

== ENCOUNTER 2025-01-20 13:05 | Outpatient (RCR) | payer OTHER, SELFPAY | END 2025-01-20 23:59 | disposition home or self-care (01) | LOC: ROT 13:05 | PROVIDERS: ATTENDING PHYSICIAN Orthopaedic Surgery Hand Surgery; FAMILY PHYSICIAN Family Medicine | DX: Z47.89 Encounter for other orthopedic aftercare (principal); Z73.6 Limitation of activities due to disability; M79.642 Pain in left hand | CPT/HCPCS: 97018; 97110; 97140; 97166 ==

== ENCOUNTER 2025-02-06 14:13 | Outpatient (RCR) | payer OTHER, SELFPAY | END 2025-02-06 23:59 | disposition home or self-care (01) | LOC: RPT 14:13 | PROVIDERS: ATTENDING PHYSICIAN Internal Medicine Rheumatology; PRIMARYCARE PHYSICIAN Family Medicine | DX: R42 Dizziness and giddiness (principal); R26.89 Other abnormalities of gait and mobility; Z73.6 Limitation of activities due to disability; M54.50 Low back pain, unspecified; M62.81 Muscle weakness (generalized) | CPT/HCPCS: 97110; 97163; 97530 ==

== ENCOUNTER 2025-02-27 13:16 | Outpatient (RCR) | payer OTHER, SELFPAY | END 2025-02-27 23:59 | disposition home or self-care (01) | LOC: RPT 13:16 | PROVIDERS: ATTENDING PHYSICIAN Internal Medicine Rheumatology; PRIMARYCARE PHYSICIAN Family Medicine | DX: R42 Dizziness and giddiness (principal); R26.89 Other abnormalities of gait and mobility; Z73.6 Limitation of activities due to disability; M54.50 Low back pain, unspecified; M62.81 Muscle weakness (generalized) | CPT/HCPCS: 97110; 97530 ==

== ENCOUNTER 2025-03-06 15:05 | Outpatient (RCR) | payer OTHER, SELFPAY | END 2025-03-06 23:59 | disposition home or self-care (01) | LOC: ROT 15:05 | PROVIDERS: ATTENDING PHYSICIAN Orthopaedic Surgery Hand Surgery; FAMILY PHYSICIAN Family Medicine | DX: Z47.89 Encounter for other orthopedic aftercare (principal); Z73.6 Limitation of activities due to disability; M79.642 Pain in left hand | CPT/HCPCS: 97018; 97022; 97110; 97140 ==

== ENCOUNTER 2025-04-07 13:01 | Outpatient (RCR) | payer OTHER, SELFPAY | END 2025-04-07 23:59 | disposition home or self-care (01) | LOC: RPT 13:01 | PROVIDERS: ATTENDING PHYSICIAN Internal Medicine Rheumatology; PRIMARYCARE PHYSICIAN Family Medicine | DX: R42 Dizziness and giddiness (principal); R26.89 Other abnormalities of gait and mobility; Z73.6 Limitation of activities due to disability; M54.50 Low back pain, unspecified; M62.81 Muscle weakness (generalized) | CPT/HCPCS: 97110; 97112; 97530 ==

== ENCOUNTER 2025-05-06 09:22 | Outpatient (RCR) | payer OTHER, SELFPAY | END 2025-05-06 23:59 | disposition home or self-care (01) | LOC: RPT 09:22 | PROVIDERS: ATTENDING PHYSICIAN Internal Medicine Rheumatology; PRIMARYCARE PHYSICIAN Family Medicine | DX: R42 Dizziness and giddiness (principal); R26.89 Other abnormalities of gait and mobility; Z73.6 Limitation of activities due to disability; M54.50 Low back pain, unspecified; M62.81 Muscle weakness (generalized); M79.605 Pain in left leg | CPT/HCPCS: 97110; 97112; 97116; 97530 ==

== ENCOUNTER 2025-05-13 07:47 | Outpatient (RCR) | payer OTHER, SELFPAY | END 2025-05-13 23:59 | disposition home or self-care (01) | LOC: RPT 07:47 | PROVIDERS: ATTENDING PHYSICIAN Internal Medicine Rheumatology; PRIMARYCARE PHYSICIAN Family Medicine | DX: R42 Dizziness and giddiness (principal); R26.89 Other abnormalities of gait and mobility; Z73.6 Limitation of activities due to disability; M54.50 Low back pain, unspecified; M62.81 Muscle weakness (generalized) | CPT/HCPCS: 97110; 97112 ==

== ENCOUNTER → 2025-06-03 14:54 | Outpatient (REF) | payer OTHER, SELFPAY | LOC: PAVMRI 14:54 | PROVIDERS: ATTENDING PHYSICIAN Physician Assistant; FAMILY PHYSICIAN Family Medicine | DX: M54.16 Radiculopathy, lumbar region (principal) | CPT/HCPCS: 72148 ==